=== PATIENT | male | born 1990 | race Caucasian/White ===

== ENCOUNTER 2017-01-24 22:38 | Emergency (ER) | payer SELFPAY ==
[~2017-01-24] VITALS: Ht 175.3 cm; Wt 61.4 kg
[~2017-01-24 22:38] MED LIST: Z.0.NO CURRENT MEDS
[2017-01-24 22:46] VITALS: BP 137/98; PULSE 87; RESP 14; TEMP 98.2; O2SAT 100
--- NOTE | 2017-01-24 23:21 | PD ---
HPI Chief Complaint: OD/ Ingestion Time Seen by Provider: 22:55 Travel History International Travel<30 days: No Contact w/Intl Traveler<30days: No Traveled to known affect area: No History of Present Illness HPI Patient is a 26-year-old male presents emergency department for evaluation after an apparent heroin overdose. The patient states "I think I did just a little too much heroin tonight". Patient has no physical complaints now and states he feels fine and wants to go home. According to EMS bystanders called 911, and by time 911 arrived the patient was alert and awake, no Narcan to be given on scene. Patient denies any chest pain shortness breath abdominal pain nausea vomiting. PFSH Past Medical History Medical History: Denies Significant Hx Blood Disorders: No Tetanus Vaccination: > 5 Years Influenza Vaccination: No Past Surgical History Surgical History: No Previous Surgery Social History Alcohol Use: No Tobacco Use: Yes Substance Use: Yes Allergies-Medications (Allergen,Severity, Reaction): Coded Allergies: morphine (Verified Allergy, Severe, 01/24/17) Uncoded Allergies: MORPHINE AND DERIVATIVES (Allergy, Unknown, 10/22/02) NKA (Allergy, Unknown, 10/22/02) Reported Meds & Prescriptions Reported Meds & Active Scripts Active Review of Systems Except as stated in HPI: all other systems reviewed are Neg Physical Exam Narrative GENERAL: Well-developed well-nourished, no obvious distress. SKIN: Focused skin assessment warm/dry. Multiple track brown without obvious abscess or cellulitis. HEAD: Atraumatic. Normocephalic. EYES: Pupils equal and round. No scleral icterus. No injection or drainage. ENT: No nasal bleeding or discharge. Mucous membranes pink and moist. NECK: Trachea midline. No JVD. CARDIOVASCULAR: Regular rate and rhythm. No murmur appreciated. RESPIRATORY: No accessory muscle use. Clear to auscultation. Breath sounds equal bilaterally. GASTROINTESTINAL: Abdomen soft, non-tender, nondistended. Hepatic and splenic margins not palpable. MUSCULOSKELETAL: No obvious deformities. No clubbing. No cyanosis. No edema. NEUROLOGICAL: Awake and alert and oriented. Cranial nerves II through XII are grossly intact and nonfocal, 5 out of 5 strength in all 4 extremity's. PSYCHIATRIC: Appropriate mood and affect; insight and judgment normal. Data Data Last Documented VS Vital Signs Date Time Temp Pulse Resp B/P (MAP) Pulse Ox O2 Delivery O2 Flow Rate FiO2 01/24/17 22:46 98.2 87 14 137/98 (111) 100 Orders Orders Ed Discharge Order (01/25/17 00:20) MDM Medical Decision Making Medical Screen Exam Complete: Yes Emergency Medical Condition: Yes Differential Diagnosis Heroine overdose, substance abuse, intoxication. Narrative Course Patient roomed emerged permit, observed for an hour and a half in the emergency department had no apnea and no hypoxia and no hypotension. Alert and awake and oriented throughout the stay emergency department, family arrives to take him home, there is no indication further observation the emergency department nor workup. He is stable for discharge. Diagnosis Primary Impression: Heroin overdose Qualified Codes: T40.1X1A - Poisoning by heroin, accidental (unintentional), initial encounter Referrals: [facility] Disposition: 01 DISCHARGE HOME Condition: Stable Gagandeep Galvan MD Jan 24, 2017 23:21
== END 2017-01-25 00:22 | disposition home or self-care (01) ==
LOC: NEPC 22:38
DX: T40.1X1A Poisoning by heroin, accidental (unintentional), initial encounter (principal)
CPT/HCPCS: 99281

== ENCOUNTER 2017-02-23 23:41 | Observation (INO) | payer MEDICAID, OTHER ==
[~2017-02-23] VITALS: Ht 175.3 cm; Wt 70.0 kg
[2017-02-23 23:42] VITALS: BP 119/63; PULSE 105; RESP 16; TEMP 98.6; O2SAT 99
[2017-02-24] VITALS (7 sets, daily range): BP systolic 113–124; BP diastolic 56–84; PULSE 50–88; RESP 14–20; TEMP 95.8–97.9; O2SAT 97–100
[2017-02-24] MEDS ORDERED: VANCOMYCIN INJ 1,400 MG in SODIUM CHLORID 0.9% 500 ML INJ 500 ML IV ONE (02:00)
[2017-02-24] MEDS ORDERED: PIPERACIL-TAZO 4.5 GM PREMIX 100 ML IV ONE (02:00)
--- NOTE | 2017-02-24 02:05 | PD ---
HPI Chief Complaint: Skin Problem Time Seen by Provider: 01:16 Travel History International Travel<30 days: No Contact w/Intl Traveler<30days: No Traveled to known affect area: No History of Present Illness HPI 26-year-old [id number] white male presents to emergency department with complains of pain and swelling to his left middle finger. He states that this is been present now for the past 3-4 days. He denies any trauma. 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 The patient was seen in the ER 1 month ago for a chainsaw injury to his right lower leg and has not had a stitches of yet. Patient admits to having subjective fever and chills at home. He does admit to a history of IV substance abuse. He last used IV drugs earlier today. Patient denies any chest pain, shortness of breath, nausea, vomiting, abdominal pain or urinary symptoms. He states the pain in his hand is moderate. Worse with movement. No alleviating factors. Up-to-date with immunizations. History of skin infections in the past. Denies history of endocarditis or epidural abscess.. PFSH Past Medical History Narrative Medical IV drug abuse. Denies hepatitis or HIV Blood Disorders: No Tetanus Vaccination: < 5 Years Past Surgical History Narrative Surgical Appendectomy Appendectomy: Yes Social History Alcohol Use: No Tobacco Use: Yes Substance Use: Yes (HEROIN ) Allergies-Medications (Allergen,Severity, Reaction): Coded Allergies: No Known Allergies (Unverified , 02/23/17) Reported Meds & Prescriptions Reported Meds & Active Scripts Active No Active Prescriptions or Reported Medications Review of Systems General / Constitutional: Positive: Fever, Chills Eyes: No: Visual changes HENT: No: Headaches Cardiovascular: No: Chest Pain or Discomfort Respiratory: No: Shortness of Breath Gastrointestinal: No: Abdominal Pain Genitourinary: No: Dysuria Musculoskeletal: Positive: Arthralgias, Limited ROM, Edema, Pain Skin: Positive Rash (left middle finger) Neurologic: No: Weakness Psychiatric: No: Depression Endocrine: No: Polydipsia Hematologic/Lymphatic: No: Easy Bruising Physical Exam Narrative GENERAL: Well-developed, well-nourished in no apparent distress. Nontoxic appearing. HEAD: Normocephalic, atraumatic. EYES: Pupils equal round and reactive. Extraocular motions intact. No scleral icterus. No injection or drainage. ENT: Nose clear. Throat without erythema, tonsillar hypertrophy or exudate. Uvula midline. Airway patent. NECK: Trachea midline. Supple, nontender, moves head freely. No central bony tenderness or spasm. CARDIOVASCULAR: Regular rate and rhythm without murmurs, gallops, or rubs. RESPIRATORY: Clear to auscultation. Breath sounds equal bilaterally. No wheezes , rales, or rhonchi. GASTROINTESTINAL: Abdomen soft, non-tender, nondistended. No hepato-splenomegaly , or palpable masses. No guarding. EXTREMITIES: No clubbing, cyanosis. Examination of the left hand reveals a large edematous middle finger from the MCP down into the distal phalanx. The patient has an open area over the distal end of the phalanx radial aspect which has a small amount of purulent drainage. This has been cultured. Patient has global decreased range of motion but is able to extend. Intact gross sensation. The fingers red, warm and tender. There is some mild swelling into the for hand. There is no pain on the palmar aspect. This does not look like it Flexeril tenosynovitis. BACK: Nontender without deformity. No flank tenderness. NEUROLOGICAL: Awake, alert and oriented x 3 .Cranial nerves grossly intact. Motor and sensory grossly within normal limits. Normal speech. Skin: Patient has multiple track brown to both upper extremities. Patient has a well-healed laceration to the right pretibial region with sutures out of been in place for 1 month. He has suture reaction related to the sutures. Data Data Last Documented VS Vital Signs Date Time Temp Pulse Resp B/P (MAP) Pulse Ox O2 Delivery O2 Flow Rate FiO2 02/23/17 23:42 98.6 105 16 119/63 (81) 99 Room Air Orders Orders Iv Access Insert/Monitor (02/24/17 01:55) Complete Blood Count With Diff (02/24/17 01:55) Basic Metabolic Panel (Bmp) (02/24/17 01:55) Blood Culture (02/24/17 01:55) Wound Culture And Gram Stain (02/24/17 01:55) Lactic Acid (02/24/17 01:55) Vancomycin Inj (Vancomycin Inj) (02/24/17 02:00) Piperacil-Tazo 4.5 Gm Premix (Zosyn 4.5 (02/24/17 02:00) Finger (Pom4uii) (02/24/17 01:55) Admit To Inpatient (02/24/17 ) Vital Signs (Adult) Q4H (02/24/17 02:49) Activity Oob With Assistance (02/24/17 02:49) Change Manager / Telemetry .CONTINUOUS (02/24/17 02:49) Diet Heart Healthy (02/24/17 Breakfast) Sodium Chloride 0.9% Flush (Ns Flush) (02/24/17 03:00) Sodium Chloride 0.9% Flush (Ns Flush) (02/24/17 09:00) Basic Metabolic Panel (Bmp) (02/25/17 06:00) Complete Blood Count With Diff (02/25/17 06:00) Case Management Consult (02/24/17 02:49) Naloxone Inj (Narcan Inj) (02/24/17 03:00) Inpatient Certification (02/24/17 ) Vancomycin Consult Pharmacy (Vancomycin (02/24/17 03:00) Piperacil-Tazo 4.5 Gm Premix (Zosyn 4.5 (02/24/17 08:00) Consult Hand Surgery (02/24/17 ) Labs Laboratory Tests Test 02/24/17 02:15 White Blood Count 9.3 TH/MM3 Red Blood Count 4.37 MIL/MM3 Hemoglobin 12.9 GM/DL Hematocrit 36.9 % Mean Corpuscular Volume 84.3 FL Mean Corpuscular Hemoglobin 29.4 PG Mean Corpuscular Hemoglobin Concent 34.9 % Red Cell Distribution Width 12.5 % Platelet Count 280 TH/MM3 Mean Platelet Volume 7.3 FL Neutrophils (%) (Auto) 74.8 % Lymphocytes (%) (Auto) 19.5 % Monocytes (%) (Auto) 4.8 % Eosinophils (%) (Auto) 0.6 % Basophils (%) (Auto) 0.3 % Neutrophils # (Auto) 7.0 TH/MM3 Lymphocytes # (Auto) 1.8 TH/MM3 Monocytes # (Auto) 0.5 TH/MM3 Eosinophils # (Auto) 0.1 TH/MM3 Basophils # (Auto) 0.0 TH/MM3 CBC Comment DIFF FINAL Differential Comment Blood Urea Nitrogen 8 MG/DL Creatinine 0.72 MG/DL Random Glucose 78 MG/DL Calcium Level 8.4 MG/DL Sodium Level 139 MEQ/L Potassium Level 3.2 MEQ/L Chloride Level 102 MEQ/L Carbon Dioxide Level 31.9 MEQ/L Anion Gap 5 MEQ/L Estimat Glomerular Filtration Rate 130 ML/MIN Lactic Acid Level 1.3 mmol/L MDM Medical Decision Making Medical Screen Exam Complete: Yes Emergency Medical Condition: Yes Medical Record Reviewed: Yes Interpretation(s) CBC & BMP Diagram 02/24/17 02:15 Calcium Level 8.4 L Differential Diagnosis MDM: High Differential diagnoses: Abscess, folliculitis, cellulitis, lymphangitis, abrasion, contact dermatitis, flexor tenosynovitis Narrative Course IV access is obtained. Routine blood including CBC, chemistry, blood cultures 2, wound culture, vancomycin 1.4 g IV, and 4.5 g of Zosyn IV. The patient's informed that he will necessitate IV antibiotics and admission hospital. Patient verbally states understanding and agrees with treatment plan and follow- up. The case has been discussed with Dr. KURTZ who has agreed to admit this patient. She is aware that the patient will need a hand consult in the morning. This is left middle finger cellulitis, IV drug abuse Sepsis Criteria SIRS Criteria (2 or more): Heart rate over 90 Sepsis Criteria (SIRS+source): Infect source susp/known Diagnosis Primary Impression: Cellulitis of left middle finger Additional Impression: IV drug abuse Admitting Information Admitting Physician Requests: Admit Scripts No Active Prescriptions or Reported Meds Condition: Evan Minaya Feb 24, 2017 02:05
[2017-02-24 02:32] LABS: BASOPHIL % 0.3 % (0.0-2.0); EOSINOPHIL # 0.1 TH/MM3 (0-0.4); EOSINOPHIL % 0.6 % (0.0-4.0); HEMATOCRIT 36.9 % (39.0-51.0); HEMOGLOBIN 12.9 GM/DL (13.0-17.0); LYMPH % 19.5 % (9.0-44.0); LYMPHOCYTE # 1.8 TH/MM3 (1.0-4.8); MEAN CELL VOLUME 84.3 FL (80.0-100.0); MEAN CORPUSCULAR HEMOGLOBIN 29.4 PG (27.0-34.0); MEAN CORPUSCULAR HGB CONC 34.9 % (32.0-36.0); MEAN PLATELET VOLUME 7.3 FL (7.0-11.0); MONO % 4.8 % (0.0-8.0); MONOCYTE # 0.5 TH/MM3 (0-0.9); NEUT % 74.8 % (16.0-70.0); PLATELET COUNT 280 TH/MM3 (150-450); RED BLOOD COUNT 4.37 MIL/MM3 (4.50-5.90); RED CELL DISTRIBUTION WIDTH 12.5 % (11.6-17.2); WHITE BLOOD COUNT 9.3 TH/MM3 (4.0-11.0)
[2017-02-24 02:45] LABS: BICARBONATE 31.9 MEQ/L (21.0-32.0); CALCIUM 8.4 MG/DL (8.5-10.1); CREATININE 0.72 MG/DL (0.60-1.30)
[2017-02-24] MEDS ORDERED: SODIUM CHLORIDE 0.9% FLUSH 10 ML FLUSH IV FLUSH PRN (03:00)
[2017-02-24] MEDS ORDERED: POTASSIUM CHLORIDE 20 MEQ CONTROLLED RELEASE TAB PO ONE (03:00)
[2017-02-24] MEDS ORDERED: NALOXONE HCL 0.4 MG/ML AMP IV PUSH PRN (03:00)
[2017-02-24] MEDS ORDERED: Vancomycin Consult Pharmacy 1 EA OTHER SCH (03:00)
--- NOTE | 2017-02-24 03:44 | RADRPT ---
EXAM DATE/TIME: 02/24/2017 02:36 [facility] COMPARISON: No previous studies available for comparison. INDICATIONS : Left 3rd digit pain, swelling for 1 week with no known injury MEDICAL HISTORY : None. SURGICAL HISTORY : None. ENCOUNTER: Initial ACUITY: 1 week PAIN SCORE: 7/10 LOCATION: Left 3rd digit FINDINGS: Examination of the third digit of the left hand demonstrates no evidence of fracture or dislocation. No radiopaque foreign bodies are seen. The soft tissues are intact. CONCLUSION: 1. Swelling without fracture Ananth Fernández MD on February 24, 2017 at 3:42 Board Certified Radiologist. This report was verified electronically.
[2017-02-24] MEDS: SODIUM CHLORIDE 0.9% FLUSH 10 ML FLUSH IV FLUSH SCH ×2 (08:17→20:50)
[2017-02-24] MEDS: PIPERACIL-TAZO 4.5 GM PREMIX 100 ML IV SCH ×3 (08:17→20:49)
[2017-02-24] MEDS ORDERED: NEOMYCIN/POLYMYXIN 1 ML G.U. IRRIGANT ONE (11:25)
[2017-02-24] MEDS ORDERED: BUPIVACAINE HCL PF 0.5% 30 ML VIAL ONE (12:15)
[2017-02-24] MEDS ORDERED: LIDOCAINE HCL 2% 50 ML VIAL ONE (12:15)
[2017-02-24] MEDS ORDERED: BACITRACIN TOP OINT 15 GM TUBE ONE (12:15)
[2017-02-24] MEDS ORDERED: CHLORHEXIDINE GLUCONATE 2 % 1 PACK (2 CLOTHS) TOPICAL PRN (12:30)
[2017-02-24] MEDS ORDERED: METOPROLOL TARTRATE 25 MG TAB PO PRN (12:30)
[2017-02-24] MEDS ORDERED: SODIUM CHLORID 0.9% 500 ML IV PRN (12:30)
[2017-02-24] MEDS ORDERED: POVIDONE IODINE 5% (ANTISEPSIS KIT) 4 APPLICATIONS EACH NARE PRN (12:30)
[2017-02-24] MEDS ORDERED: LACTATED RINGER'S 1000 ML IV PRN (12:30)
[2017-02-24] MEDS: VANCOMYCIN INJ 1,300 MG in SODIUM CHLORID 0.9% 500 ML INJ 500 ML IV SCH (14:00)
[2017-02-24] MEDS ORDERED: DO NOT ADM ANY ANTICOAGULANT DRUGS PRN (14:40)
--- NOTE | 2017-02-24 14:42 | PD.OP ---
Operative Report Preoperative Diagnosis: (1) Abscess of left middle finger Postoperative Diagnosis: (1) Abscess of left middle finger Procedure: incision/drainage and excisional debridement left middle finger dorsum Anesthesia: general Surgeon: Soto Cortes Advertising Clerk(s): sam Operation and Findings: purulence with necrosis dorsal aspect of middle phalanx left middle finger Soto Cortes MD Feb 24, 2017 14:42
[2017-02-24] MEDS ORDERED: MIDAZOLAM HCL 2 MG/2 ML VIAL ONE (14:47)
--- NOTE | 2017-02-24 15:10 | MB ---
cc: LEE PEREZ MD DATE OF CONSULTATION: February 24, 2017 REASON FOR CONSULTATION Left middle finger infection. HISTORY OF PRESENT ILLNESS The patient is a 26-year-old right-hand dominant male who presented to the ED yesterday with complaints of pain and swelling involving the left middle finger of 3-4 days duration. The patient gives history of IV drug abuse. He also complains of painful range of motion of the middle finger. Denies any injury. Denies any tingling or numbness. He also complains of wound over the dorsal aspect of the finger with associated swelling. PAST MEDICAL AND SURGICAL HISTORY Noted and nonsignificant. EXAMINATION The patient is alert, oriented x3. Examination of left upper extremity reveals swelling of the left middle finger with erythema over the dorsal aspect of the PIP joint, middle phalanx and DIP joint region. There is a scab over the dorsal aspect of the DIP joint region. Tenderness noted over the region. Tenderness also noted over the DIP and PIP joints. On making a fist he has limited range of motion of the PIP and DIP joints. He has intact distal sensation. He has intact distal circulation. No tenderness noted along the flexor tendon sheath. IMAGING STUDIES X-rays of the left middle finger shows evidence of soft tissue swelling, no evidence of fracture or radiopaque foreign body. LABORATORY DATA His lab work was reviewed. He has white count of 9.3 and neutrophil shift of 74%. ASSESSMENT 26-year-old male with left middle finger abscess. PLAN Plan will be to keep the patient n.p.o., take him emergently for incision and drainage of left middle finger. The patient was also informed about possible arthrotomy of the proximal interphalangeal joint. The patient has been explained risks and benefits of the procedure. We will continue with IV antibiotics. Lee Perez MD SE/TLL /2:44 PM /2:55 PM
--- NOTE | 2017-02-24 15:40 | HHI.HP ---
[facility] No Primary Care Physician Admission Diagnosis left middle finger cellulitis, IV drug abuse Diagnoses: Chief Complaint: Middle finger abscess Travel History International Travel<30 Days: No Contact w/Intl Traveler <30 Da: No Traveled to Known Affected Are: No History of Present Illness 26 years old male with history of IVDU presented to the ED with severe pain and swelling involving his left middle finger which was going on for about 3 days ago. Hand surgeon consulted in ED and patient went to I&D in the OR by the hand surgeon. I set the patient post op he was slightly lethargic but was unable to give much of a history, I discussed with the nurse \anesthesia. Patient stated his pain is high but did not give a scale he asked for a nicotine patch Review of Systems ROS Limitations: Clinical Condition (patient just came out of water post I&D is slightly lethargic), Poor Historian Past Family Social History Past Medical History Unobtainable except for known IVDU Past Surgical History Unobtainable Allergies: Coded Allergies: No Known Allergies (Unverified , 02/23/17) Family History Unobtainable Social History Positive for IVDU heroin Physical Exam Vital Signs Vital Signs Date Time Temp Pulse Resp B/P (MAP) Pulse Ox O2 Delivery O2 Flow Rate FiO2 02/24/17 15:19 95.8 50 20 124/84 (97) 100 02/24/17 15:03 97.6 55 18 112/82 (92) 100 Room Air 02/24/17 14:45 56 18 112/79 (90) 100 Room Air 02/24/17 14:34 97.6 71 18 115/74 (88) 100 Room Air 02/24/17 11:45 98.4 58 20 104/60 (75) 99 02/24/17 08:16 88 14 122/68 (86) 98 Room Air 02/24/17 04:25 70 16 117/56 (76) 98 Room Air 02/24/17 03:43 65 16 122/75 (91) 98 Room Air 02/23/17 23:42 98.6 105 16 119/63 (81) 99 Room Air Physical Exam GENERAL: This is a well-nourished, well-developed patient, started due to postop. SKIN: No rashes, warm and dry , multiple tattoos noted HEAD: Atraumatic. Normocephalic. EYES: Pupils equal round and reactive. Extraocular motions intact. No scleral icterus. ENT: Nose without bleeding, or drainage, Airway patent. NECK: Trachea midline. Supple CARDIOVASCULAR: Regular rate and rhythm without murmurs, gallops, or rubs. RESPIRATORY: Fair air entry bilaterally. No wheezes, rales, or rhonchi. GASTROINTESTINAL: Abdomen soft, non-tender, nondistended. Positive bowel sounds MUSCULOSKELETAL: Right middle finger in gauze postop, Extremities without clubbing, cyanosis, or edema. Pedal pulses appreciated NEUROLOGICAL: Awake and alert. Moves all extremity. Normal speech.no focal neurological deficit Laboratory Laboratory Tests Test 02/24/17 02:15 White Blood Count 9.3 Red Blood Count 4.37 Hemoglobin 12.9 Hematocrit 36.9 Mean Corpuscular Volume 84.3 Mean Corpuscular Hemoglobin 29.4 Mean Corpuscular Hemoglobin Concent 34.9 Red Cell Distribution Width 12.5 Platelet Count 280 Mean Platelet Volume 7.3 Neutrophils (%) (Auto) 74.8 Lymphocytes (%) (Auto) 19.5 Monocytes (%) (Auto) 4.8 Eosinophils (%) (Auto) 0.6 Basophils (%) (Auto) 0.3 Neutrophils # (Auto) 7.0 Lymphocytes # (Auto) 1.8 Monocytes # (Auto) 0.5 Eosinophils # (Auto) 0.1 Basophils # (Auto) 0.0 CBC Comment DIFF FINAL Differential Comment Blood Urea Nitrogen 8 Creatinine 0.72 Random Glucose 78 Calcium Level 8.4 Sodium Level 139 Potassium Level 3.2 Chloride Level 102 Carbon Dioxide Level 31.9 Anion Gap 5 Estimat Glomerular Filtration Rate 130 Lactic Acid Level 1.3 Date/Time Source Procedure Growth Status 02/24/17 02:13 Blood Peripheral Aerobic Blood Culture Pending Received 02/24/17 02:13 Blood Peripheral Anaerobic Blood Culture Pending Received 02/24/17 13:30 Wound Finger Fungal Smear Pending Received 02/24/17 13:30 Wound Finger Fungal Culture Pending Received Result Diagram: 1/11/18 0215 1/11/18 0215 Imaging Last Impressions Finger X-Ray 02/24/17 0155 Signed Impressions: Service Date/Time: February 02:36 - CONCLUSION: 1. Swelling without fracture MD Tyler Iqbal VTE Risk Assessment Tyler VTE Risk Assessment: No/Low Risk (score <= 1) Tyler Risk Assessment Model Point Value = 1 Point Value = 2 Point Value = 3 Point Value = 5 Age 41-60 Minor surgery BMI > 25 kg/m2 Swollen legs Varicose veins or History of unexplained or recurrent spontaneous Oral contraceptives or hormone replacement Sepsis (< 1 month) Serious lung disease, including pneumonia (< 1 month) Abnormal pulmonary function Acute myocardial infarction Congestive heart failure (< 1 month) History of inflammatory bowel disease Medical patient at bed rest Age 61-74 Arthroscopic surgery Major open surgery (> 45 min) Laparoscopic surgery (> 45 min) Malignancy Confined to bed (> 72 hours) Immobilizing plaster cast Central venous access Age >= 75 History of VTE Family history of VTE Factor V Leiden Prothrombin [id number] Lupus anticoagulant Anticardiolipin antibodies Elevated serum homocysteine Heparin-induced thrombocytopenia Other congenital or acquired thrombophilia Stroke (< 1 month) Elective arthroplasty Hip, pelvis, or leg fracture Acute spinal cord injury (< 1 month) Prophylaxis Regimen Total Risk Factor Score Risk Level Prophylaxis Regimen 0-1 Low Early ambulation 2 Moderate Order ONE of the following: *Sequential Compression Device (SCD) *Heparin 5000 units SQ BID 3-4 Higher Order ONE of the following medications: *Heparin 5000 units SQ TID *Enoxaparin/Lovenox 40 mg SQ daily (WT < 150 kg, CrCl > 30 mL/min) *Enoxaparin/Lovenox 30 mg SQ daily (WT < 150 kg, CrCl > 10-29 mL/min) *Enoxaparin/Lovenox 30 mg SQ BID (WT < 150 kg, CrCl > 30 mL/min) AND/OR *Sequential Compression Device (SCD) 5 or more Highest Order ONE of the following medications: *Heparin 5000 units SQ TID (Preferred with Epidurals) *Enoxaparin/Lovenox 40 mg SQ daily (WT < 150 kg, CrCl > 30 mL/min) *Enoxaparin/Lovenox 30 mg SQ daily (WT < 150 kg, CrCl > 10-29 mL/min) *Enoxaparin/Lovenox 30 mg SQ BID (WT < 150 kg, CrCl > 30 mL/min) AND *Sequential Compression Device (SCD) Assessment and Plan Assessment and Plan 26 years old male history of IVDU admitted with Left middle finger abscess: Patient started on Vanco and Zosyn, status post I&D by Dr. Jean Baptiste hand surgeon, continue monitoring temperature, WBC, blood culture and wound culture. Consider ID consult, 2-D echo if blood cultures positive Pain management with morphine. DVT prophylaxis with early ambulation Discussed Condition With Patient and nurse paper goods machine operator Aaron Calderon MD Feb 24, 2017 15:40
[2017-02-24] MEDS: REMOVE OLD PATCH T-DERMAL SCH (16:29)
[2017-02-24] MEDS ORDERED: NICOTINE 14 MG/24 HR PATCH T-DERMAL ONE (16:30)
[2017-02-24] MEDS: MORPHINE SULFATE 4 MG/ML INJ IV PUSH PRN ×2 (16:44→23:00)
[2017-02-25] VITALS (13 sets, daily range): BP systolic 108–137; BP diastolic 65–76; PULSE 61–82; RESP 16–21; TEMP 95.7–99.6; O2SAT 99–100
[2017-02-25] MEDS: PIPERACIL-TAZO 4.5 GM PREMIX 100 ML IV SCH ×4 (02:12→20:58)
[2017-02-25] MEDS: VANCOMYCIN INJ 1,300 MG in SODIUM CHLORID 0.9% 500 ML INJ 500 ML IV SCH ×2 (04:48→15:19)
[2017-02-25 07:38] LABS: AUTOMATED NEUTROPHIL # 5.7 TH/MM3 (1.8-7.7); BASOPHIL % 0.3 % (0.0-2.0); EOSINOPHIL # 0.1 TH/MM3 (0-0.4); EOSINOPHIL % 0.8 % (0.0-4.0); HEMATOCRIT 37.6 % (39.0-51.0); LYMPH % 20.7 % (9.0-44.0); LYMPHOCYTE # 1.6 TH/MM3 (1.0-4.8); MEAN CORPUSCULAR HGB CONC 34.5 % (32.0-36.0); MEAN PLATELET VOLUME 7.6 FL (7.0-11.0); MONO % 5.5 % (0.0-8.0); MONOCYTE # 0.4 TH/MM3 (0-0.9); NEUT % 72.7 % (16.0-70.0); PLATELET COUNT 265 TH/MM3 (150-450); RED BLOOD COUNT 4.48 MIL/MM3 (4.50-5.90); RED CELL DISTRIBUTION WIDTH 12.5 % (11.6-17.2); WHITE BLOOD COUNT 7.8 TH/MM3 (4.0-11.0)
[2017-02-25 08:05] LABS: BICARBONATE 28.7 MEQ/L (21.0-32.0); CALCIUM 8.2 MG/DL (8.5-10.1); CREATININE 0.71 MG/DL (0.60-1.30)
[2017-02-25] MEDS: SODIUM CHLORIDE 0.9% FLUSH 10 ML FLUSH IV FLUSH SCH ×2 (09:00→20:59)
[2017-02-25] MEDS: MORPHINE SULFATE 4 MG/ML INJ IV PUSH PRN ×3 (09:00→21:00)
--- NOTE | 2017-02-25 12:05 | MP ---
cc: LEE PEREZ MD DATE OF SURGERY: 02/25/2017 PREOPERATIVE DIAGNOSIS: Abscess left middle finger. POSTOPERATIVE DIAGNOSIS Abscess left middle finger. PROCEDURE Incision and drainage and excisional debridement of left middle finger. SURGEON Lee Perez MD. ANESTHESIA General ESTIMATED BLOOD LOSS Minimal TOURNIQUET TIME 18 minutes at 250 mmHg SPECIMENS: The specimen was sent for culture sensitivity. HISTORY: The patient is a 26-year-old right-hand dominant male presented to the ED with complaints of pain and swelling of the left middle finger for the past 3-4 days. Denies any injury. He also complains of associated swelling and redness of the left middle finger. Denies any IV drug abuse. SUMMARY The patient gives history of IV drug abuse and last use was yesterday. He also complains of chills and fever. The patient also complains of associated stiffness of the left middle finger. Denies any numbness. On examination the patient had swelling, redness over the dorsal aspect of the left middle finger with stiffness of the PIP and DIP joint with limited range of motion with associated pain. The patient was consented for incision and drainage left middle finger. The patient was explained risks and benefits of the procedure. The patient was brought to the operating room under general anesthesia the left upper extremity was thoroughly prepped and draped. Incision site was marked in a curvilinear fashion extending from the PIP joint to the DIP joint. After limb elevation tourniquet inflated 250 mmHg. The incision was then made over the proposed incision site. Soft tissue dissection was carried out. There was extensive inflammatory tissue in the region on further exposure. There is evidence of purulent material with necrosis over the dorsal aspect of the middle phalanx. Material was sent for culture sensitivity. The DIP and the PIP joint region was exposed. Extensive limited tissue was noted on the extensor apparatus which was debrided. Intraoperatively there was no evidence of involvement of the PIP joint hence a decision was made not to proceed with the arthrotomy. Thorough wash was given using normal saline mixed with hydrogen peroxide. This was then followed by hydrogen peroxide mixed with irrigant. About 2 liters of solution was used. Tourniquet is deflated. Total tourniquet time was 18 minutes. The patient had good distal circulation after the tourniquet. Packing of the wound was carried out with quadrants Iodoform packing material. Skin flaps were then loosely approximated using 4-0 nylon in a horizontal mattress interrupted fashion. Bulky hand dressing was applied which was held in place by Tank. The patient had good distal circulation at the end of the procedure. He was recovered in stable condition. Plan will be to change. Packing tomorrow and continue with IV antibiotics. Lee Perez MD SE/shukri /2:40 PM /11:54 AM
--- NOTE | 2017-02-25 13:42 | HHI.PR ---
Subjective Remarks in no acute distress. pain is controlled. no fever. no new complaints. Objective Vitals Vital Signs Date Time Temp Pulse Resp B/P (MAP) Pulse Ox O2 Delivery O2 Flow Rate FiO2 02/25/17 13:08 96.4 70 18 115/66 (82) 100 02/25/17 12:46 77 02/25/17 08:38 95.7 61 21 118/72 (87) 100 02/25/17 07:50 67 02/25/17 05:49 97.8 76 18 108/65 (79) 99 02/25/17 04:07 73 02/25/17 01:39 98.2 79 18 125/76 (92) 100 02/25/17 00:05 82 02/24/17 21:45 97.9 74 18 113/66 (82) 97 02/24/17 19:54 83 02/24/17 17:05 63 02/24/17 15:19 95.8 50 20 124/84 (97) 100 02/24/17 15:03 97.6 55 18 112/82 (92) 100 Room Air 02/24/17 14:45 56 18 112/79 (90) 100 Room Air 02/24/17 14:34 97.6 71 18 115/74 (88) 100 Room Air I/O 02/24/17 02/24/17 02/24/17 02/25/17 02/25/17 02/25/17 07:00 15:00 23:00 07:00 15:00 23:00 Intake Total 600 ml 700 ml 100 ml Output Total 10 ml 1125 ml Balance 600 ml 690 ml -1125 ml 100 ml Intake IV Total 600 ml 100 ml 100 ml Other 600 ml Output Urine Total 1125 ml Estimated Blood Loss 10 ml Result Diagram: 02/25/17 0720 02/25/17 0720 Imaging Last Impressions Finger X-Ray 02/24/17 0155 Signed Impressions: Service Date/Time: February 02:36 - CONCLUSION: 1. Swelling without fracture Ananth Fernández MD Objective Remarks GENERAL: This is a well-nourished, well-developed patient, in no apparent distress. CARDIOVASCULAR: Regular rate and regular rhythm without murmurs, gallops, or rubs. RESPIRATORY: Clear to auscultation. Breath sounds equal bilaterally. No wheezes , rales, or rhonchi. GASTROINTESTINAL: Abdomen soft, non-tender, nondistended. Normal, active bowel sounds MUSCULOSKELETAL:left hand covered with clean dressing. NEURO: Alert & Oriented x4 to person, place, time, situation. Moves all ext x4 Procedures I/D / debridement of the left middle finger. Medications and IVs Inpatient Medications Chlorhexidine Gluconate (Chlorhexidine 2% Cloth) 3 pack [employer]RIETARY [employer]ADER PRN TOPICAL SEE LABEL COMMENTS; Start 02/24/17 at 12:30; Stop 02/27/17 at 12:29 Lactated Ringer's 1,000 ml @ 30 mls/hr Q24H PRN IV SEE LABEL COMMENTS; Start at 12:30; Stop 02/27/17 at 12:29 Metoprolol Tartrate (Lopressor) 25 mg PROPRIETARY TRADER PRN PO SEE LABEL COMMENTS; Start 02/24/17 at 12:30; Stop 02/27/17 at 12:29 Miscellaneous Information 1 Q24H T-DERMAL ; Start 02/24/17 at 16:29; Stop at 16:30 Morphine Sulfate (Morphine Inj) 2 mg Q4H PRN IV PUSH pain 3-5; Start 02/24/17 at 16:30 Naloxone HCl (Narcan Inj) 0.4 mg UNSCH PRN IV PUSH SEE LABEL COMMENTS; Start at 03:00 Nicotine (Habitrol 14 Mg Patch.24 Hr) 1 patch ONCE ONCE T-DERMAL Last administered on 02/24/17at 16:44; Start 02/24/17 at 16:30; Stop 02/24/17 at 16:31 ; Status DC Pharmacy Profile Note 0 ml @ 0 mls/hr UNSCH OTHER ; Start 02/24/17 at 03:00 Piperacillin Sod/ Tazobactam Sod 100 ml @ 200 mls/hr Q6H IV Last administered on 02/25/17at 13:13; Start 02/24/17 at 08:00 Potassium Chloride (KCl) 40 meq ONCE ONCE PO Last administered on 02/24/17at 03 :15; Start 02/24/17 at 03:00; Stop 02/24/17 at 03:01; Status DC Povidone Iodine (Betadine 5% Antisepsis Kit) 1 applic PROPRIETARY TRADER PRN EACH NARE SEE LABEL COMMENTS; Start 02/24/17 at 12:30; Stop 02/27/17 at 12:29 Sodium Chloride 500 ml @ 30 mls/hr [id number] PRN IV SEE LABEL COMMENTS; Start 01/01 at 12:30; Stop 02/27/17 at 12:29 Sodium Chloride (NS Flush) 2 ml BID IV FLUSH Last administered on 02/25/17at 09: 00; Start 02/24/17 at 09:00 Vancomycin HCl 1300 mg/Sodium Chloride 513 ml @ 250 mls/hr Q12H IV Last administered on 02/25/17at 04:48; Start 02/24/17 at 14:00 Vancomycin HCl 1400 mg/Sodium Chloride 514 ml @ 250 mls/hr ONCE ONCE IV Last administered on 02/24/17at 03:16; Start 02/24/17 at 02:00; Stop 02/24/17 at 04:03 ; Status DC A/P Assessment and Plan A/P - cellulitis/ abscess of the left middle finger s/p I/D and debridement- continue IV antibiotics and pain control. blood cultures negative- will follow the wound culture. hand surgery following. Discharge Planning dc home when cleared by hand surgery and wound culture is resulted. Bud Peraza MD Feb 25, 2017 13:42
[2017-02-25] MEDS ORDERED: PHARMACY ORDERED LAB ONE (13:45)
[2017-02-25] MEDS: REMOVE OLD PATCH T-DERMAL SCH (16:29)
--- NOTE | 2017-02-25 18:30 | HHI.PR ---
Subjective Remarks complains of mild pain complaint with limb elevation no fever Objective Vital Signs Date Time Temp Pulse Resp B/P (MAP) Pulse Ox O2 Delivery O2 Flow Rate FiO2 02/25/17 17:23 99.6 71 20 120/69 (86) 99 02/25/17 16:35 77 02/25/17 13:08 96.4 70 18 115/66 (82) 100 02/25/17 12:46 77 02/25/17 08:38 95.7 61 21 118/72 (87) 100 02/25/17 07:50 67 02/25/17 05:49 97.8 76 18 108/65 (79) 99 02/25/17 04:07 73 02/25/17 01:39 98.2 79 18 125/76 (92) 100 02/25/17 00:05 82 02/24/17 21:45 97.9 74 18 113/66 (82) 97 02/24/17 19:54 83 I/O 02/24/17 02/24/17 02/24/17 02/25/17 02/25/17 02/25/17 07:00 15:00 23:00 07:00 15:00 23:00 Intake Total 600 ml 700 ml 100 ml Output Total 10 ml 1125 ml Balance 600 ml 690 ml -1125 ml 100 ml Intake IV Total 600 ml 100 ml 100 ml Other 600 ml Output Urine Total 1125 ml Estimated Blood Loss 10 ml examination of the left middle finger: packing in place swelling and mild drainage noted stiffness of the middle finger noted intact sensation and circulation cultures and gram stain negative to date Result Diagram: 02/25/1720 02/25/17 0720 Assessment and Plan Assessment and Plan 26 year old male s/p I and D left middle finger POD 1 plan: packing pulled out a cm dressing applied advised regarding range of motion exercises limb elevation follow up cultures continue with IV antibiotics Soto Cortes MD Feb 25, 2017 18:29
[2017-02-26] VITALS (9 sets, daily range): BP systolic 100–141; BP diastolic 50–63; PULSE 61–94; RESP 12–18; TEMP 95.7–98.6; O2SAT 96–100
[2017-02-26] MEDS: PIPERACIL-TAZO 4.5 GM PREMIX 100 ML IV SCH ×4 (01:53→20:38)
[2017-02-26] MEDS: VANCOMYCIN INJ 1,300 MG in SODIUM CHLORID 0.9% 500 ML INJ 500 ML IV SCH ×2 (03:29→15:48)
[2017-02-26] MEDS: MORPHINE SULFATE 4 MG/ML INJ IV PUSH PRN ×3 (10:22→22:40)
[2017-02-26] MEDS: SODIUM CHLORIDE 0.9% FLUSH 10 ML FLUSH IV FLUSH SCH ×2 (10:29→20:38)
[2017-02-26] MEDS: NICOTINE 14 MG/24 HR PATCH T-DERMAL SCH (11:47)
[2017-02-26] MEDS: REMOVE OLD PATCH T-DERMAL SCH (11:48)
--- NOTE | 2017-02-26 12:12 | HHI.PR ---
Subjective Remarks in no acute distress. pain is controlled. no fever. no new complaints. Objective Vitals Vital Signs Date Time Temp Pulse Resp B/P (MAP) Pulse Ox O2 Delivery O2 Flow Rate FiO2 02/26/17 09:23 95.7 64 12 112/61 (78) 99 02/26/17 04:09 63 02/26/17 03:31 98.2 74 18 100/50 (67) 96 02/26/17 01:54 98.1 94 18 141/58 (85) 97 02/25/17 23:59 67 02/25/17 20:12 98.3 70 16 137/72 (93) 100 02/25/17 20:08 70 02/25/17 17:23 99.6 71 20 120/69 (86) 99 02/25/17 16:35 77 02/25/17 13:08 96.4 70 18 115/66 (82) 100 02/25/17 12:46 77 I/O 02/25/17 02/25/17 02/25/17 02/26/17 02/26/17 02/26/17 07:00 15:00 23:00 07:00 15:00 23:00 Intake Total 100 ml 100 ml Output Total 1125 ml Balance -1125 ml 100 ml 100 ml Intake IV Total 100 ml 100 ml Output Urine Total 1125 ml # Bowel Movements 1 Result Diagram: 02/25/17 0720 02/25/17 0720 Imaging Last Impressions Finger X-Ray 02/24/17 0155 Signed Impressions: Service Date/Time: February 02:36 - CONCLUSION: 1. Swelling without fracture Ananth Fernández MD Objective Remarks GENERAL: This is a well-nourished, well-developed patient, in no apparent distress. CARDIOVASCULAR: Regular rate and regular rhythm without murmurs, gallops, or rubs. RESPIRATORY: Clear to auscultation. Breath sounds equal bilaterally. No wheezes , rales, or rhonchi. GASTROINTESTINAL: Abdomen soft, non-tender, nondistended. Normal, active bowel sounds MUSCULOSKELETAL:left hand covered with clean dressing. NEURO: Alert & Oriented x4 to person, place, time, situation. Moves all ext x4 Procedures I/D / debridement of the left middle finger. Medications and IVs Inpatient Medications Chlorhexidine Gluconate (Chlorhexidine 2% Cloth) 3 pack [employer]GER PRN TOPICAL SEE LABEL COMMENTS; Start 02/24/17 at 12:30; Stop 02/27/17 at 12:29 Lactated Ringer's 1,000 ml @ 30 mls/hr Q24H PRN IV SEE LABEL COMMENTS; Start at 12:30; Stop 02/27/17 at 12:29 Metoprolol Tartrate (Lopressor) 25 mg [employer]GER PRN PO SEE LABEL COMMENTS; Start 02/24/17 at 12:30; Stop 02/27/17 at 12:29 Miscellaneous Information 1 DAILY T-DERMAL Last administered on 02/26/17at 11:48 ; Start 02/26/17 at 12:00 Morphine Sulfate (Morphine Inj) 2 mg Q4H PRN IV PUSH pain 3-5; Start 02/24/17 at 16:30 Naloxone HCl (Narcan Inj) 0.4 mg UNSCH PRN IV PUSH SEE LABEL COMMENTS; Start at 03:00 Nicotine (Habitrol 14 Mg Patch.24 Hr) 1 patch DAILY T-DERMAL Last administered on 02/26/17at 11:47; Start 02/26/17 at 12:00 Pharmacy Profile Note 0 ml @ 0 mls/hr UNSCH OTHER ; Start 02/24/17 at 03:00 Piperacillin Sod/ Tazobactam Sod 100 ml @ 200 mls/hr Q6H IV Last administered on 02/26/17at 10:23; Start 02/24/17 at 08:00 Potassium Chloride (KCl) 40 meq ONCE ONCE PO Last administered on 02/24/17at 03 :15; Start 02/24/17 at 03:00; Stop 02/24/17 at 03:01; Status DC Povidone Iodine (Betadine 5% Antisepsis Kit) 1 applic [employer]GER PRN EACH NARE SEE LABEL COMMENTS; Start 02/24/17 at 12:30; Stop 02/27/17 at 12:29 Sodium Chloride 500 ml @ 30 mls/hr [id number] PRN IV SEE LABEL COMMENTS; Start 01/01 at 12:30; Stop 02/27/17 at 12:29 Sodium Chloride (NS Flush) 2 ml BID IV FLUSH Last administered on 02/26/17at 10: 29; Start 02/24/17 at 09:00 Vancomycin HCl 1300 mg/Sodium Chloride 513 ml @ 250 mls/hr Q12H IV Last administered on 02/26/17at 03:29; Start 02/24/17 at 14:00 Vancomycin HCl 1400 mg/Sodium Chloride 514 ml @ 250 mls/hr ONCE ONCE IV Last administered on 02/24/17at 03:16; Start 02/24/17 at 02:00; Stop 02/24/17 at 04:03 ; Status DC A/P Assessment and Plan A/P - cellulitis/ abscess of the left middle finger s/p I/D and debridement- continue IV antibiotics. continue pain control; will switch to po meds. blood cultures negative- will follow the wound culture. hand surgery following. d/w today and plan for possible discharge tomorrow if stable. Discharge Planning dc home when cleared by hand surgery . Bud Peraza MD Feb 26, 2017 12:12
[2017-02-26] MEDS ORDERED: ACETAMINOPHEN/HYDROcodone 325 MG/5 MG TAB PO PRN (12:15)
[2017-02-26] MEDS ORDERED: PHARMACY ORDERED LAB ONE (13:45)
[2017-02-26] MEDS: ACETAMINOPHEN/HYDROcodone 325 MG/5 MG TAB PO PRN ×2 (15:10→21:30)
[2017-02-27] VITALS: BP 122/63; PULSE 66; RESP 18; TEMP 97.4; O2SAT 100
[2017-02-27 00:10] VITALS: PULSE 55
[2017-02-27] MEDS: PIPERACIL-TAZO 4.5 GM PREMIX 100 ML IV SCH ×2 (02:23→08:38)
[2017-02-27] MEDS: VANCOMYCIN INJ 1,300 MG in SODIUM CHLORID 0.9% 500 ML INJ 500 ML IV SCH (03:06)
[2017-02-27 04:02] VITALS: PULSE 68
[2017-02-27 04:47] VITALS: BP 115/70; PULSE 73; RESP 18; TEMP 96.8; O2SAT 100
[2017-02-27 07:28] VITALS: PULSE 50
[2017-02-27] MEDS: REMOVE OLD PATCH T-DERMAL SCH (08:38)
[2017-02-27] MEDS: NICOTINE 14 MG/24 HR PATCH T-DERMAL SCH (08:38)
[2017-02-27] MEDS: ACETAMINOPHEN/HYDROcodone 325 MG/5 MG TAB PO PRN (08:39)
[2017-02-27 09:14] VITALS: BP 120/60; PULSE 62; RESP 20; TEMP 97.9; O2SAT 96
[2017-02-27] MEDS ORDERED: HYDR-3516 PO (09:20)
--- NOTE | 2017-02-27 09:20 | HHI.DCPOC ---
Discharge Care Plan Diagnosis: (1) Abscess of left middle finger Goals to Promote Your Health * To prevent worsening of your condition and complications * To maintain your health at the optimal level Directions to Meet Your Goals Take your medications as prescribed Follow your dietary instruction Follow activity as directed Keep your appointments as scheduled Take your immunizations and boosters as scheduled If your symptoms worsen call your PCP, if no PCP go to Urgent Care Center or Emergency Room Smoking is Dangerous to Your Health. Avoid second hand smoke Call the 24-hour hour crisis hotline for domestic abuse at Randi Covington PA-C Feb 27, 2017 9:20 am
[2017-02-27] MEDS ORDERED: BACT800T5 PO (09:21)
--- NOTE | 2017-02-27 11:00 | HHI.DS ---
Discharge Summary Admission Date Feb 24, 2017 at 05:09 Discharge Date: Feb 27, 2017 Admitting Diagnosis left middle finger cellulitis, IV drug abuse (1) Cellulitis of left middle finger ICD Code: L03.012 - Cellulitis of left finger Status: Acute (2) IV drug abuse ICD Code: F19.10 - Other psychoactive substance abuse, uncomplicated Status: Acute (3) Abscess of left middle finger ICD Code: L02.512 - Cutaneous abscess of left hand Procedures I/D / debridement of the left middle finger. Brief History - From Admission 26 years old male with history of IVDU presented to the ED with severe pain and swelling involving his left middle finger which was going on for about 3 days ago. Hand surgeon consulted in ED and patient went to I&D in the OR by the hand surgeon. I set the patient post op he was slightly lethargic but was unable to give much of a history, I discussed with the nurse \anesthesia. Patient stated his pain is high but did not give a scale he asked for a nicotine patch CBC/BMP: 02/25/17 0720 02/25/17 0720 Significant Findings Laboratory Tests Test 02/25/17 07:20 02/26/17 13:45 Red Blood Count 4.48 MIL/MM3 (4.50-5.90) Hematocrit 37.6 % (39.0-51.0) Neutrophils (%) (Auto) 72.7 % (16.0-70.0) Blood Urea Nitrogen 6 MG/DL (7-18) Calcium Level 8.2 MG/DL (8.5-10.1) Imaging Last Impressions Finger X-Ray 02/24/17 0155 Signed Impressions: Service Date/Time: February 02:36 - CONCLUSION: 1. Swelling without fracture Ananth Fernández MD PE at Discharge GENERAL: This is a well-nourished, well-developed patient, in no apparent distress. CARDIOVASCULAR: Regular rate and regular rhythm without murmurs, gallops, or rubs. RESPIRATORY: Clear to auscultation. Breath sounds equal bilaterally. No wheezes , rales, or rhonchi. GASTROINTESTINAL: Abdomen soft, non-tender, nondistended. Normal, active bowel sounds MUSCULOSKELETAL:left hand covered with clean dressing. NEURO: Alert & Oriented x4 to person, place, time, situation. Moves all ext x4 Pt update on day of discharge In bed appears in nad. No fever or chills overnight. Pain is controlled. No n/v /d/c. Denies chest pain or sob. Cleared by hand surgeon for DC. Hospital Course Young 26 yo M with h/o IVDA with cellulitis/ abscess of the left middle finger S/p I/D and debridement- Received IV antibiotics discharged on bactrim. Cultures with MRSA Pain control; po meds. Blood cultures negative- MRSA wound culture. Hand surgery was consulted anf ff. Cleared by for discharge. Pt Condition on Discharge: Stable Discharge Disposition: Discharge Home Discharge Time: > 30 minutes Discharge Instructions DIET: Follow Instructions for: As Tolerated, No Restrictions Activities you can perform: Regular-No Restrictions Follow up Referrals: Hand Surgery - 1 Week with Soto Cortes MD PCP Follow-up - 1 Week New Medications: Sulfamethoxazole-Trimethoprim (Bactrim DS) 800-160 Mg Tab 1 TAB PO BID for Infection, #20 TAB 0 Refills Hydrocodone/Acetaminophen (Hydrocodone-Acetamin 5-325 mg) 5 Mg-325 Mg Tablet 1-2 TAB PO Q6HR PRN for pain, #15 TAB Patricia Vargas MD Feb 27, 2017 11:00
[2017-02-28] MEDS ORDERED: PHARMACY ORDERED LAB ONE (13:45)
== END 2017-02-27 13:44 | disposition home or self-care (01) ==
LOC: NEPD 23:41 → NEDA 02-24 03:03 → UNDOADMIN 02-24 03:03 → INTOOBSV 02-24 05:09 → NEDA 02-24 05:09 → NEPHCDU 02-24 15:24
PROVIDERS: ADMIT Hospitalist; ATTEND Hospitalist
DX: L03.012 Cellulitis of left finger (principal); L02.512 Cutaneous abscess of left hand; B95.62 Methicillin resistant Staphylococcus aureus infection as the cause of diseases classified elsewhere; F19.10 Other psychoactive substance abuse, uncomplicated; Z72.0 Tobacco use
CPT/HCPCS: 00400; 26011; 73140; 80048; 80202; 83605; 85025; 86403; 87015; 87040; 87070; 87102; 87116; 87147; 87186; 87205; 87206; 96365; 96366; 96375; 96376; 99285; G0378; J2250; J2270; J2543; J3010; J3370; J7040

== ENCOUNTER 2017-06-16 01:22 | Emergency (ER) | payer SELFPAY ==
[~2017-06-16] VITALS: Ht 175.3 cm; Wt 68.0 kg
[~2017-06-16 01:22] MED LIST changes: +BACT800T5 PO; +HYDR-3516 PO; -Z.0.NO CURRENT MEDS
[2017-06-16 01:27] VITALS: BP 139/94; PULSE 97; RESP 13; O2SAT 100
[2017-06-16] MEDS ORDERED: SODIUM CHLOR 0.9% 1000 ML INJ 1,000 ML IV ONE (01:45)
[2017-06-16 01:47] LABS: AUTOMATED NEUTROPHIL # 3.5 TH/MM3 (1.8-7.7); BASOPHIL % 0.2 % (0.0-2.0); EOSINOPHIL % 0.2 % (0.0-4.0); HEMATOCRIT 36.6 % (39.0-51.0); HEMOGLOBIN 12.5 GM/DL (13.0-17.0); LYMPH % 19.3 % (9.0-44.0); LYMPHOCYTE # 0.9 TH/MM3 (1.0-4.8); MEAN CELL VOLUME 83.5 FL (80.0-100.0); MEAN CORPUSCULAR HEMOGLOBIN 28.5 PG (27.0-34.0); MEAN CORPUSCULAR HGB CONC 34.2 % (32.0-36.0); MEAN PLATELET VOLUME 7.4 FL (7.0-11.0); MONO % 6.2 % (0.0-8.0); MONOCYTE # 0.3 TH/MM3 (0-0.9); NEUT % 74.1 % (16.0-70.0); PLATELET COUNT 185 TH/MM3 (150-450); RED BLOOD COUNT 4.39 MIL/MM3 (4.50-5.90); RED CELL DISTRIBUTION WIDTH 14.4 % (11.6-17.2); WHITE BLOOD COUNT 4.7 TH/MM3 (4.0-11.0)
[2017-06-16 02:02] LABS: ALBUMIN 3.9 GM/DL (3.4-5.0); ALT (GPT) 22 U/L (12-78); AST (GOT) 22 U/L (15-37); BICARBONATE 27.5 MEQ/L (21.0-32.0); BLOOD UREA NITROGEN 7 MG/DL (7-18); CALCIUM 8.6 MG/DL (8.5-10.1); CHLORIDE 105 MEQ/L (98-107); CREATININE 0.81 MG/DL (0.60-1.30); GLOMERULAR FILTRATION RATE 113 ML/MIN (>89); GLUCOSE,RANDOM 158 MG/DL (74-106); SODIUM (NA) 140 MEQ/L (136-145)
[2017-06-16 02:04] LABS: ALKALINE PHOSPHATASE 94 U/L (45-117); TOTAL BILIRUBIN ADULT 0.3 MG/DL (0.2-1.0); TOTAL PROTEIN 7.9 GM/DL (6.4-8.2)
[2017-06-16 03:35] VITALS: BP 151/95; PULSE 90; RESP 20; O2SAT 98
--- NOTE | 2017-06-16 03:44 | PD ---
HPI Chief Complaint: OD/ Ingestion Time Seen by Provider: 01:33 Travel History International Travel<30 days: No Contact w/Intl Traveler<30days: No Traveled to known affect area: No History of Present Illness HPI Patient is a 27 year old male who comes in due to a drug overdose. Per EMS, he was found outside an apartment complex unconscious. He was given 2mg Narcan IM by the fire department. He denies feeling sick prior to this event. He admits he injected himself with what he thought was heroine, but thinks maybe it was mixed with something. He says he feels "weird." Severity is mild. PFSH Past Medical History Blood Disorders: No Cancer: No Cardiovascular Problems: No Endocrine: No Genitourinary: No Immune Disorder: No Medical other: Yes (MRSA ON A FINGER 2018) Musculoskeletal: No Neurologic: No Psychiatric: No Reproductive: No Respiratory: No Past Surgical History Appendectomy: Yes Social History Alcohol Use: No Tobacco Use: Yes Substance Use: Yes (heroin 1 day) Allergies-Medications (Allergen,Severity, Reaction): Coded Allergies: No Known Allergies (Unverified , 02/23/17) Reported Meds & Prescriptions Reported Meds & Active Scripts Active Bactrim DS (Sulfamethoxazole-Trimethoprim) 800-160 Mg Tab 1 Tab PO BID Hydrocodone-Acetamin 5-325 mg (Hydrocodone/Acetaminophen) 5 Mg-325 Mg Tablet 1- 2 Tab PO Q6HR PRN Review of Systems Except as stated in HPI: all other systems reviewed are Neg General / Constitutional: No: Fever, Chills HENT: No: Headaches, Lightheadedness Cardiovascular: No: Chest Pain or Discomfort Respiratory: No: Shortness of Breath Gastrointestinal: No: Nausea, Vomiting Musculoskeletal: No: Myalgias Neurologic: No: Weakness, Dizziness Physical Exam Narrative GENERAL: Awake and alert, in no acute distress. SKIN: Focused skin assessment warm/dry. Several track brown on both arms. No evidence of infection. HEAD: Atraumatic. Normocephalic. EYES: Pupils equal and round. No scleral icterus. No injection or drainage. ENT: Mucous membranes pink and moist. NECK: Trachea midline. No JVD. CARDIOVASCULAR: Regular rate and rhythm. No murmur appreciated. RESPIRATORY: No accessory muscle use. Clear to auscultation. Breath sounds equal bilaterally. GASTROINTESTINAL: Abdomen soft, non-tender, nondistended. MUSCULOSKELETAL: No obvious deformities. No clubbing. No cyanosis. No edema. NEUROLOGICAL: Awake and alert. No obvious cranial nerve deficits. Motor grossly within normal limits. Normal speech. PSYCHIATRIC: Appropriate mood and affect; insight and judgment normal. Data Data Last Documented VS Vital Signs Date Time Temp Pulse Resp B/P (MAP) Pulse Ox O2 Delivery O2 Flow Rate FiO2 06/16/17 01:27 97 13 139/94 (109) 100 Orders Orders Iv Access Insert/Monitor (06/16/17 01:33) Complete Blood Count With Diff (06/16/17 01:33) Comprehensive Metabolic Panel (06/16/17 01:33) Creatine Kinase (Cpk) (06/16/17 01:33) Sodium Chlor 0.9% 1000 Ml Inj (Ns 1000 M (06/16/17 01:45) Labs Laboratory Tests Test 06/16/17 01:40 White Blood Count 4.7 TH/MM3 Red Blood Count 4.39 MIL/MM3 Hemoglobin 12.5 GM/DL Hematocrit 36.6 % Mean Corpuscular Volume 83.5 FL Mean Corpuscular Hemoglobin 28.5 PG Mean Corpuscular Hemoglobin Concent 34.2 % Red Cell Distribution Width 14.4 % Platelet Count 185 TH/MM3 Mean Platelet Volume 7.4 FL Neutrophils (%) (Auto) 74.1 % Lymphocytes (%) (Auto) 19.3 % Monocytes (%) (Auto) 6.2 % Eosinophils (%) (Auto) 0.2 % Basophils (%) (Auto) 0.2 % Neutrophils # (Auto) 3.5 TH/MM3 Lymphocytes # (Auto) 0.9 TH/MM3 Monocytes # (Auto) 0.3 TH/MM3 Eosinophils # (Auto) 0.0 TH/MM3 Basophils # (Auto) 0.0 TH/MM3 CBC Comment DIFF FINAL Differential Comment Blood Urea Nitrogen 7 MG/DL Creatinine 0.81 MG/DL Random Glucose 158 MG/DL Total Protein 7.9 GM/DL Albumin 3.9 GM/DL Calcium Level 8.6 MG/DL Alkaline Phosphatase 94 U/L Aspartate Amino Transf (AST/SGOT) 22 U/L Alanine Aminotransferase (ALT/SGPT) 22 U/L Total Bilirubin 0.3 MG/DL Sodium Level 140 MEQ/L Potassium Level 4.0 MEQ/L Chloride Level 105 MEQ/L Carbon Dioxide Level 27.5 MEQ/L Anion Gap 8 MEQ/L Estimat Glomerular Filtration Rate 113 ML/MIN Total Creatine Kinase 262 U/L MDM Medical Decision Making Medical Screen Exam Complete: Yes Emergency Medical Condition: Yes Medical Record Reviewed: Yes Differential Diagnosis drug overdose vs intoxication vs dehydration Narrative Course Patient is a 27 year old male who comes in after being found unconscious after using heroine. He was given Narcan by EMS prior to arrival. Labs sent show no acute abnormalities. Patient observed in the ED for 2 hours without any further issues. He is discharged to police custody. Diagnosis Primary Impression: Drug overdose Qualified Codes: T50.901A - Poisoning by unspecified drugs, medicaments and biological substances, accidental (unintentional), initial encounter Patient Instructions: General Instructions, Narcotic Abuse (ED) Additional Instructions: Stop using drugs. Follow-up with a primary care doctor. Return to the ED as needed for any worsening symptoms. Disposition: [address] LAW ENFORCEMNT Condition: Stable Kathleen Ca MD June 16, 2017 03:44
== END 2017-06-16 03:56 ==
LOC: NEPE 01:22
DX: T50.901A Poisoning by unspecified drugs, medicaments and biological substances, accidental (unintentional), initial encounter (principal)
CPT/HCPCS: 80053; 82550; 85025; 96360; 96361; 99284; J7030